=== PATIENT | female | born 1955 | race Two or more races ===

== ENCOUNTER 2023-03-08 14:44 | Emergency (ER) | payer MEDICARE, OTHER ==
[~2023-03-08] VITALS: Ht 162.6 cm; Wt 76.2 kg
--- NOTE | 2023-03-08 15:04 | NUR ---
BIB ambulance from home with c/o abd pain/ constipation. Patient is alert and oriented x4, lung sounds are clear, abd soft, non tender to palpation, left nephrostomy tube intact. Patient informed of plan of care, #22g established in left wrist, unable to draw blood at this time. Patient aware will be medicated as per MD order for c/o pain. Side rails up will continue to monitor.
[2023-03-08] MEDS ORDERED: ONDANSETRON 4 MG/2 ML VIAL ONE (15:09)
[2023-03-08] MEDS ORDERED: MORPHINE SULFATE 4 MG/1 ML DISP.SYRIN ONE (15:09)
[2023-03-08] MEDS: ONDANSETRON 4 MG/2 ML VIAL IV ONE (15:12)
[2023-03-08] MEDS: IV NORMAL SALINE 1000 ML BAG IV ONE (15:13)
[2023-03-08] MEDS: MORPHINE SULFATE 2 MG/1 ML DISP.SYRIN IV ONE (15:13)
[2023-03-08 15:27] LABS: HEMATOCRIT 32.7 % (31.2-41.9); MEAN CORPUSCULAR HEMOGLOBIN 27.1 uug (24.7-32.8); MEAN CORPUSCULAR VOLUME 83.4 fL (75.5-95.3); PLATELET COUNT (AUTO) 366 K/uL (179-408)
[2023-03-08] MEDS ORDERED: FLEET ENEMA 133 ML BOTTLE RC ONE (16:44)
[2023-03-08] MEDS: FLEET ENEMA 133 ML BOTTLE RC ONE (17:19)
[2023-03-08 17:30] LABS: CREATININE 0.8 mg/dL (0.6-1.3); POTASSIUM 3.4 mmol/L (3.5-5.1)
[2023-03-08 17:36] LABS: BILIRUBIN,DIRECT 0.1 mg/dL (0.0-0.2); BILIRUBIN,TOTAL 0.4 mg/dL (0.2-1.0)
[2023-03-08] MEDS: GLYCERIN ADULT RECTAL SUPP EACH RC ONE (18:12)
[2023-03-08] MEDS ORDERED: GLYC1SUP17 RC (18:14)
[2023-03-08] MEDS ORDERED: POLY17PO4 PO (18:14)
[2023-03-08] MEDS ORDERED: SENN8.6T19 PO (18:14)
[2023-03-08] MEDS ORDERED: KETOROLAC TROMETHAMINE 30 MG INJ ONE (18:19)
[2023-03-08] MEDS: KETOROLAC TROMETHAMINE 30 MG INJ IM ONE (18:24)
--- NOTE | 2023-03-08 18:48 | NUR ---
Patient discharged to home in stable condition. Written and verbal after care instructions given. Patient verbalizes understanding of instructions. Patient was able to defecate prior to leaving. Stressed follow up or return to ER for worsening s/s.
[2023-03-08 18:49] VITALS: BP 105/68
== END 2023-03-08 18:27 | disposition home or self-care (01) ==
LOC: ER 14:50
DX: R10.9 Unspecified abdominal pain (principal); K59.00 Constipation, unspecified; C55 Malignant neoplasm of uterus, part unspecified; Z79.899 Other long term (current) drug therapy; Z88.5 Allergy status to narcotic agent
CPT/HCPCS: 99285; 74176; 96374; 96361; 96375; 80076; 80048; 83690; 85025; 96372; J1885; J2405; J2270; J7040; 36415; A4663